=== PATIENT | female | born 1995 | race Two or more races ===

== ENCOUNTER 2017-12-26 22:04 | Emergency (ER) | payer OTHER ==
[~2017-12-26] VITALS: Ht 157.5 cm; Wt 59.0 kg
[2017-12-26] MEDS ORDERED: IBUPROFEN 400 MG TAB PO ONE (22:45)
[2017-12-26] MEDS ORDERED: ACETAMINOPHEN 325 MG TAB PO ONE (22:45)
[2017-12-26 23:14] VITALS: BP 120/83
== END 2017-12-26 23:15 | disposition home or self-care (01) ==
LOC: FSED 22:04
DX: S83.421A Sprain of lateral collateral ligament of right knee, initial encounter (principal); W22.8XXA Striking against or struck by other objects, initial encounter; Y99.0 Civilian activity done for income or pay
CPT/HCPCS: 99283